=== PATIENT | female | born 1980 | race Caucasian/White ===

== ENCOUNTER 2022-03-18 15:41 | Emergency (ER) | payer OTHER, MEDICAID, SELFPAY ==
[2022-03-18 15:42] VITALS: BP 118/94; PULSE 94; RESP 18; TEMP 36.2; O2SAT 98; BMI 47.2
--- NOTE | 2022-03-18 15:54 | EDS_ITS ---
HPI History of Present Illness Chief Complaint: Back Narrative Narrative: 41-year-old female presenting with left sided lower back spasm. This started while she was washing dishes. She denies any direct trauma. She denies saddle anesthesia, paresthesia. She denies urinary tension or stool retention. Patient states she has been exercising more recently to lose weight. This is the first time she has had a muscle spasm like this. She does not have any back problems. She has not tried anything for pain prior to arrival. She states it is feeling somewhat improved now but is still hurting. [facility] Medical History (Updated 03/18/22 @ 15:59 by Kateryna Michael) Hypothyroidism Home Medications levothyroxine 50 mcg tablet 50 mcg PO DAILY 03/18/22 [History Last Taken Unknown] prednisone 10 mg tablet 50 mg PO DAILY 4 days #20 tabs 03/18/22 [Rx Last Taken Unknown] tizanidine 4 mg tablet (Zanaflex) 4 mg PO Q8H PRN muscle spasticity #10 tabs 03/18/22 [Rx Last Taken Unknown] Allergy/AdvReac Type Severity Reaction Status Date / Time No Known Allergies Allergy Verified 03/18/22 15:58 [facility] ED Constitutional Constitutional ED: Denies chills or fever(s) ENT ENT ED: Denies rhinorrhea Cardiovascular Cardiovascular: Denies chest pain or palpitations Respiratory/Chest Respiratory/Chest: Denies dyspnea or dyspnea on exertion Gastrointestinal Gastrointestinal: Denies abdominal pain or constipation Genitourinary Genitourinary ED: Denies dysuria or hematuria Musculoskeletal Musculoskeletal: Reports back pain Integumentary Denies abscess Neurologic Neurologic: Denies headache(s) or paresthesias Psychiatric Psychiatric: Denies anxiety or depression EXAM Physical Exam Const Vital Signs: 03/18/22 15:42 Temperature 97.2 F L Temperature Source Temporal Pulse Rate 94 Respiratory Rate 18 Blood Pressure 118/94 H Blood Pressure Mean 102 Pulse Ox 98 Oxygen Delivery Method Room Air Positive well nourished General Appearance ED: NAD; Negative for pallor HEENT Reports moist mucous membranes Eyes PERRL and EOMs intact bilaterally Resp normal respiratory effort and clear to auscultation bilaterally Cardio regular rate GI normal to inspection, nondistended, normoactive bowel sounds Back/Spine Back/Spine Narrative: Mild left-sided lumbar paraspinal musculature tenderness. No midline spinal tenderness, deformity, step-off. No CVA tenderness. Patient able to move from sitting to standing without difficulty. No plain in the gluteal region. Extremity normal to inspection Neuro oriented x3 Sensorium / Orientation: alert Psych mental status grossly normal Skin General Skin Exam: Negative for jaundice or pallor MDM MDM MDM Narrative Medical decision making narrative: Patient presenting with muscle spasm. She does report that she has been working out more frequently lately. She denies any medical history. She has not had back problems. No red flag signs or symptoms of cauda equina or infectious etiology. She not have any urinary complaints to suggest kidney stone. Is completely reproducible in the left lumbar paraspinal musculature. Patient states she is driving so I cannot give her muscle relaxer here. I did give her a shot of Toradol. She will be started on zanaflex and prednisone for home. She was given stretching exercises that she can do and is recommended that she warm up before doing any stretching exercises. She is also to ice this when she is done. Impression: 1. Lumbar strain Lab Data Attestation: I reviewed the patient's lab results. Discharge Plan Triage Chief Complaint: Back ED Provider: Murray Conn Dx/Rx/DC Orders Instructions: ED Back Spasm, No Trauma Prescriptions: New prednisone 10 mg tablet 50 mg PO DAILY 4 Days Qty: 20 0RF tizanidine [Zanaflex] 4 mg tablet 4 mg PO Q8H PRN (Reason: muscle spasticity) Qty: 10 0RF Primary Care Provider: Jessee Lund Referrals: Jessee Lund MD [Primary Care Provider] - Disposition Disposition: Home, Self Care
[2022-03-18] MEDS: Ketorolac 15 MG/ML Vial IM (16:02)
--- NOTE | 2022-03-18 16:20 | CM.ED ---
SW Note SW reviewed tracker and noted that patient has no PCP. VIJAY met with patient. Patient said that she has a [facility] provider but can not recall her name. No further issues or concerns voiced. Tatianna FORD
[2022-03-18 17:02] VITALS: RESP 16
== END 2022-03-18 17:03 | disposition home or self-care (01) ==
LOC: ED 16:02
PROVIDERS: Emergency Provider Student in an Organized Health Care Education/Training Program; Visit Provider Student in an Organized Health Care Education/Training Program
DX: S39.012A Strain of muscle, fascia and tendon of lower back, initial encounter (principal); E03.9 Hypothyroidism, unspecified; X58.XXXA Exposure to other specified factors, initial encounter; Y93.G1 Activity, food preparation and clean up
CPT/HCPCS: 96372; 99282